=== PATIENT | female | born 2000 | race Caucasian/White ===

== ENCOUNTER 2019-02-26 16:22 | Emergency (ER) | payer OTHER ==
[~2019-02-26] VITALS: Ht 157.5 cm; Wt 87.0 kg
[~2019-02-26 16:22] MED LIST: CYCL10TA7 PO; NAPR-985 PO
[2019-02-26 16:50] VITALS: Ht 157.5 cm; Wt 87.0 kg
[2019-02-26] MEDS ORDERED: IBUPROFEN 600 MG TAB PO ONE (18:00)
[2019-02-26 20:40] VITALS: BP 119/64; PULSE 58; RESP 18
--- NOTE | 2019-02-27 00:01 | ERD ---
ER Documentation Chief Complaint Chief Complaint bilateral flank pain today HPI This is a 18-year-old female with no significant past medical history presents to the emergency department complaining of bilateral mid to low back pain for the past 2 days. Current pain is intermittent, 8/10 severity. She tried no medication for relief of symptoms. She denies any heavy lifting or falls. She took Tylenol at home with some relief. She denies any dysuria. She has had nausea. She has had some lightheadedness but no loss of consciousness, syncope, headache, or other symptoms reported. ROS All systems reviewed and are negative except as per history of present illness. Medications Home Meds Active Scripts Naproxen* (Naprosyn*) 500 Mg Tablet, 500 MG PO BID PRN for PAIN AND/OR INFLAMMATION, #30 TAB Prov:JOSH ZEPEDA PA-C 02/26/19 Cyclobenzaprine Hcl* (Cyclobenzaprine Hcl*) 10 Mg Tablet, 10 MG PO TID, #15 TAB Prov:JOSH ZEPEDA PA-C 02/26/19 Allergies Allergies: Coded Allergies: No Known Allergy (Unverified , 02/26/19) PMhx/Soc Medical and Surgical Hx: pt denies Medical Hx, pt denies Surgical Hx Hx Alcohol Use: No Hx Substance Use: No Hx Tobacco Use: No Smoking Status: Never smoker FmHx Family History: No diabetes Physical Exam Vitals Vital Signs Date Temp Pulse Resp B/P (MAP) Pulse Ox O2 O2 Flow FiO2 Time Delivery Rate 02/26/19 98.1 58 18 119/64 99 Room Air 20:40 (82) 02/26/19 98.4 64 18 126/69 100 16:50 (88) Physical Exam Const: No acute distress Head: Atraumatic Eyes: Normal Conjunctiva ENT: Normal External Ears, Nose and Mouth. Neck: Full range of motion. No meningismus. Resp: Clear to auscultation bilaterally Cardio: Regular rate and rhythm, no murmurs Abd: Soft, non tender, non distended. Normal bowel sounds. No rebound tender ness or guarding. No McBurney's point tenderness. Skin: No petechiae or rashes Back: Tenderness to palpation of the paraspinal muscles of the thoracic spine on the right. No midline tenderness. No step-offs. Ext: No cyanosis, or edema Neur: Awake and alert Psych: Normal Mood and Affect Result Diagram: 02/26/19192402/26/191924 Results 24 hrs Laboratory Tests Test 02/26/19 18:20 02/26/19 18:22 02/26/19 19:25 POC Beta HCG, Qualitative NEGATIVE Bedside Urine pH (LAB) 7.5 Bedside Urine Protein (LAB) Negative Bedside Urine Glucose (UA) Negative Bedside Urine Ketones (LAB) Trace Bedside Urine Blood Negative Bedside Urine Nitrite (LAB) Negative Bedside Urine Leukocyte Esterase Negative (L White Blood Count 12.6 10^3/ul Red Blood Count 5.13 10^6/ul Hemoglobin 13.1 g/dl Hematocrit 41.3 % Mean Corpuscular Volume 80.5 fl Mean Corpuscular Hemoglobin 25.5 pg Mean Corpuscular 31.7 g/dl Hemoglobin Concent Red Cell Distribution Width 13.5 % Platelet Count 237 10^3/UL Mean Platelet Volume 9.5 fl Immature Granulocytes % 0.200 % Neutrophils % 73.1 % Lymphocytes % 17.6 % Monocytes % 6.0 % Eosinophils % 2.5 % Basophils % 0.6 % Nucleated Red Blood Cells % 0.0 /100WBC Immature Granulocytes # 0.030 10^3/ul Neutrophils # 9.2 10^3/ul Lymphocytes # 2.2 10^3/ul Monocytes # 0.8 10^3/ul Eosinophils # 0.3 10^3/ul Basophils # 0.1 10^3/ul Nucleated Red Blood Cells # 0.0 10^3/ul Sodium Level 139 mmol/L Potassium Level 4.0 mmol/L Chloride Level 105 mmol/L Carbon Dioxide Level 27 mmol/L Anion Gap 7 Blood Urea Nitrogen 10 mg/dl Creatinine 0.65 mg/dl Est Glomerular Filtrat Rate mL/min > 60 mL/min Glucose Level 84 mg/dl Calcium Level 9.4 mg/dl Total Bilirubin 0.3 mg/dl Direct Bilirubin 0.00 mg/dl Indirect Bilirubin 0.3 mg/dl Aspartate Amino Transf (AST/SGOT) 24 IU/L Alanine 27 IU/L Aminotransferase (ALT/SGPT) Alkaline Phosphatase 119 IU/L Total Protein 7.7 g/dl Albumin 4.1 g/dl Globulin 3.60 g/dl Albumin/Globulin Ratio 1.13 Current Medications Medications Dose Sig/Heber Start Time Status Last (Trade) Ordered Route PRN Stop Time Admin Dose Reason Admin Ibuprofen 600 mg ONCE ONCE 02/26/19 DC 02/26/19 (Motrin) PO 18:00 18:21 02/26/19 18:01 [place] [id number] Radiology Main Line: [phone] DIAGNOSTIC IMAGING REPORT Patient: NORMA COOK : 2000 Age: 18 Sex: F MR #: [id number] DOS: 02/26/19 0000 Ordering MD: JOSH ZEPEDA PA-C Location: [facility] Room/Bed: PROCEDURE: Retroperitoneal US. CLINICAL INDICATION: Flank pain TECHNIQUE: Multiple sonographic images of the kidneys and retroperitoneum were obtained. The images were reviewed on a PACS workstation. COMPARISON: No prior studies are available for comparison. FINDINGS: The kidneys are normal in size, contour, cortical thickness and cortical echogenicity. The right kidney measures 11.4 cm. The left kidney measures 10.5 cm. No kidney stones are visualized. There is no evidence for hydronephrosis. The urinary bladder is normal. RPTAT: AA IMPRESSION: Unremarkable retroperitoneal ultrasound. .Nato Roche MD, MD Date Time Electronically viewed and signed by .Nato Roche MD, MD on 02/26/2019 19:03 .S/ CC: JOSH ZEPEDA PA-C [id number] Procedures/MDM 18-year-old female presenting to the emergency department with signs and symptoms most consistent with musculoskeletal back pain. Bilateral renal ultrasound was within normal limits and interpreted by the radiologist. The full report may be viewed above. CBC showed no evidence of significant leukocytosis or anemia. CMP was within normal limits. Urinalysis showed no evidence of urinary tract infection. Urine was negative. I doubt septic stone, acute surgical abdomen, vertebral fracture, cord compression, inf ectious etiology, or other emergent process. Patient will be discharged home in stable condition with a prescription for cyclobenzaprine and naproxen. She was advised to return immediately for any new or concerning symptoms. I shared my medical decision making with the patient and she understands and agrees with the plan. Departure Diagnosis: Primary Impression: Back pain Back pain location: thoracic back pain Chronicity: acute Back pain laterality: right Qualified Codes: M54.6 - Pain in thoracic spine Condition: Fair Patient Instructions: Back Pain (Acute Or Chronic) Referrals: [facility] YOU HAVE RECEIVED A MEDICAL SCREENING EXAM AND THE RESULTS INDICATE THAT YOU DO NOT HAVE A CONDITION THAT REQUIRES URGENT TREATMENT IN THE EMERGENCY DEPARTMENT. FURTHER EVALUATION AND TREATMENT OF YOUR CONDITION CAN WAIT UNTIL YOU ARE SEEN IN YOUR DOCTORS OFFICE WITHIN THE NEXT 1-2 DAYS. IT IS YOUR RESPONSIBILITY TO MAKE AN APPOINTMENT FOR FOLOW-UP CARE. IF YOU HAVE A PRIMARY DOCTOR --you should call your primary doctor and schedule an appointment IF YOU DO NOT HAVE A PRIMARY DOCTOR YOU CAN CALL OUR PHYSICIAN REFERRAL HOTLINE AT IF YOU CAN NOT AFFORD TO SEE A PHYSICIAN YOU CAN CHOSE FROM THE FOLLOWING [facility] [address] [facility] [address] [facility] [facility] [address] [facility] [address] [facility] [address] [facility]. [address] Additional Instructions: Call your primary care doctor TOMORROW for an appointment during the next 1-2 days.See the doctor sooner or return here if your condition worsens before your appointment time. JOSH ZEPEDA PA-C Feb 27, 2019 00:01
== END 2019-02-26 20:49 | disposition home or self-care (01) ==
LOC: FTE 16:22
DX: M54.6 Pain in thoracic spine (principal); R10.9 Unspecified abdominal pain
CPT/HCPCS: 76775; 80053; 81003; 81025; 85025; 87086; Z7502; Z7610